=== PATIENT | male | born 1945 | race Caucasian/White ===

== ENCOUNTER → 2016-08-05 | Outpatient (CLI) | payer MEDICARE | END | disposition home or self-care (01) | LOC: PCVCCLINIC 15:42 | PROVIDERS: ATTEND Internal Medicine Cardiovascular Disease | DX: I25.10 Atherosclerotic heart disease of native coronary artery without angina pectoris (principal); E78.00 Pure hypercholesterolemia, unspecified; E11.9 Type 2 diabetes mellitus without complications; I25.2 Old myocardial infarction; I45.10 Unspecified right bundle-branch block; I65.29 Occlusion and stenosis of unspecified carotid artery; J44.9 Chronic obstructive pulmonary disease, unspecified; I11.0 Hypertensive heart disease with heart failure; I50.22 Chronic systolic (congestive) heart failure; E03.9 Hypothyroidism, unspecified; Z95.0 Presence of cardiac pacemaker; Z95.1 Presence of aortocoronary bypass graft; Z95.2 Presence of prosthetic heart valve; Z85.72 Personal history of non-Hodgkin lymphomas; Z88.5 Allergy status to narcotic agent; Z79.82 Long term (current) use of aspirin; Z79.899 Other long term (current) drug therapy; Z88.8 Allergy status to other drugs, medicaments and biological substances; Z85.828 Personal history of other malignant neoplasm of skin; Z88.6 Allergy status to analgesic agent; Z87.09 Personal history of other diseases of the respiratory system; Z88.0 Allergy status to penicillin | CPT/HCPCS: 80061; 93005; G0463 ==

== ENCOUNTER → 2017-02-04 | Outpatient (CLI) | payer MEDICARE ==
--- NOTE | 2017-02-04 17:14 | PCVCIMAG ---
APPROVED REPORT Study performed: 02/04/2017 14:02:18 EXAM: Comprehensive 2D, Doppler, and color-flow Echocardiogram Patient Location: Echo lab Status: routine BSA: 2.21 HR: 88 bpmBP: 130/78 mmHg Rhythm: Pacemaker Other Information Study Quality: Good Indications Diabetes Pacemaker Aortic Valve Replacement. CABG, 2D Dimensions IVSd: 18.31 (7-11mm)LVOT Diam: 23.01 (18-24mm) LVDd: 45.53 mm PWd: 16.26 (7-11mm)Ascending Ao: 35.31 (22-36mm) LVDs: 37.46 (25-40mm) Left Atrium: 49.81 (27-40mm) Aortic Root: 29.14 mm LV Single Plane 4CH: 48.98 % Jules's LVEF: 36.99 % Volumes Left Atrial Volume (Systole) Single Plane 4CH: 68.70 mLSingle Plane 2CH: 114.18 mL LA ESV Index: 44.00 mL/m2 Aortic Valve AoV Peak Federico.: 3.52 m/s AO Peak Gr.: 49.45 mmHgLVOT Max P.99 mmHg AO Mean Gr.: 30.75 mmHgLVOT Mean P.98 mmHg AO V2 Mean: 2.72 m/sLVOT Max V: 1.00 m/s AO V2 VTI: 82.09 cm CHELSI (VTI): 1.08 [id number] V1 VTI: 21.41 cm CHELSI Vmax: 1.18 cm2 Mitral Valve E/A Ratio: 0.9 MV Decel. Time: 209.88 ms MV E Max Federico.: 1.07 m/s MV A Federico.: 1.16 m/s MV PHT: 60.87 ms IVRT: 103.81 ms TDI E/Lateral E': 15.29E/Medial E': 13.38 Medial E' Federico.: 0.08 m/s Lateral E' Federico.: 0.07 m/s Pulmonary Valve PV Peak Gr.: 2.97 mmHg Pulmonary Vein P Vein S: 0.57 m/sP Vein A: 0.31 m/s P Vein D: 0.67 m/sP Vein A Dur.: 83.0 msec P Vein S/D Ratio: 0.85 Tricuspid Valve TR Peak Federico.: 3.22 m/s TR Peak Gr.: 41.49 mmHg Left Ventricle The left ventricle is normal size. There is normal LV segmental wall motion. There is normal left ventricular wall thickness. Left ventricular systolic function is normal. The left ventricular ejection fraction is within the normal range. LVEF is 50%. The left ventricular diastolic function is normal. Right Ventricle The right ventricle is normal size. The right ventricular systolic function is normal. Pacemaker lead is present in the right ventricle. Atria Left atrium is moderately dilated. Pacemaker lead is present in the right atrium. Aortic Valve #26 Bioprosthesis Aortic Valve No aortic regurgitation is present. Peak Gradient of 50mhg Mean gradient of 31mmhg. Aortic Valve area of 1.1cm2 Mitral Valve Moderate mitral annular calcification. Trace mitral regurgitation. No evidence of mitral valve stenosis. Tricuspid Valve The tricuspid valve is normal in structure. Trace tricuspid regurgitation. Pulmonary artery pressure is 49mmhg. Pulmonic Valve The pulmonary valve is normal in structure. There is no pulmonic valvular regurgitation. Great Vessels The aortic root is normal in size. IVC is normal in size and collapses with >50% inspiration Pericardium There is no pericardial effusion. <Conclusion> The left ventricle is normal size. Left ventricular systolic function is normal. The left ventricular ejection fraction is within the normal range. LVEF is 50%. The left ventricular diastolic function is normal. The right ventricle is normal size. Left atrium is moderately dilated. Pacemaker lead is present in the right atrium. #26 Bioprosthesis Aortic Valve Peak Gradient of 50mhg Mean gradient of 31mmhg. Aortic Valve area of 1.1cm2 Moderate mitral annular calcification. Trace mitral regurgitation. Trace tricuspid regurgitation. Pulmonary artery pressure is 49mmhg. There is no pulmonic valvular regurgitation. There is no pericardial effusion.
== END | disposition home or self-care (01) ==
LOC: PCVCIMAG 13:52
PROVIDERS: ATTEND Internal Medicine Cardiovascular Disease
DX: I25.10 Atherosclerotic heart disease of native coronary artery without angina pectoris (principal); I10 Essential (primary) hypertension; I65.29 Occlusion and stenosis of unspecified carotid artery; E11.9 Type 2 diabetes mellitus without complications; Z95.2 Presence of prosthetic heart valve; Z95.1 Presence of aortocoronary bypass graft; Z79.899 Other long term (current) drug therapy; Z79.82 Long term (current) use of aspirin
CPT/HCPCS: 80061; 93005; 93306; G0463

== ENCOUNTER → 2017-04-24 | Outpatient (CLI) | payer MEDICARE ==
[~2017-04-24] MED LIST: REGADENOSON 0.4 MG/5 ML DISP.SYRIN. IV
== END | disposition home or self-care (01) ==
LOC: PCVCIMAG 12:23
DX: I25.10 Atherosclerotic heart disease of native coronary artery without angina pectoris (principal); E78.5 Hyperlipidemia, unspecified; I10 Essential (primary) hypertension; E11.9 Type 2 diabetes mellitus without complications; I25.2 Old myocardial infarction; Z95.1 Presence of aortocoronary bypass graft
CPT/HCPCS: 78452; 93017; A9500; J2785

== ENCOUNTER → 2017-08-25 | Outpatient (CLI) | payer MEDICARE | END | disposition home or self-care (01) | LOC: PCVCIMAG 11:35 | DX: I25.10 Atherosclerotic heart disease of native coronary artery without angina pectoris (principal); I10 Essential (primary) hypertension; E78.5 Hyperlipidemia, unspecified; I65.29 Occlusion and stenosis of unspecified carotid artery; R07.89 Other chest pain; R06.02 Shortness of breath; I42.9 Cardiomyopathy, unspecified; T82.9XXA Unspecified complication of cardiac and vascular prosthetic device, implant and graft, initial encounter; R94.31 Abnormal electrocardiogram [ECG] [EKG]; Z95.1 Presence of aortocoronary bypass graft; Z79.899 Other long term (current) drug therapy; Z79.82 Long term (current) use of aspirin; Z88.8 Allergy status to other drugs, medicaments and biological substances | CPT/HCPCS: 80061; 93005; 93306; G0463 ==

== ENCOUNTER → 2017-12-01 | Outpatient (CLI) | payer MEDICARE | END | disposition home or self-care (01) | LOC: PCVCCLINIC 13:32 | PROVIDERS: ATTEND Internal Medicine Cardiovascular Disease | DX: I25.10 Atherosclerotic heart disease of native coronary artery without angina pectoris (principal); I11.0 Hypertensive heart disease with heart failure; I50.22 Chronic systolic (congestive) heart failure; E78.00 Pure hypercholesterolemia, unspecified; I77.9 Disorder of arteries and arterioles, unspecified; I35.0 Nonrheumatic aortic (valve) stenosis; E11.9 Type 2 diabetes mellitus without complications; Z95.2 Presence of prosthetic heart valve; Z95.0 Presence of cardiac pacemaker; Z95.1 Presence of aortocoronary bypass graft; Z86.711 Personal history of pulmonary embolism; Z79.4 Long term (current) use of insulin; Z79.82 Long term (current) use of aspirin | CPT/HCPCS: 93281; G0463 ==

== ENCOUNTER → 2018-04-15 | Outpatient (CLI) | payer MEDICARE ==
--- NOTE | 2018-04-15 16:27 | PCVCIMAG ---
APPROVED REPORT Study performed: 04/15/2018 14:51:07 EXAM: Comprehensive 2D, Doppler, and color-flow Echocardiogram Patient Location: Echo lab Room #: 3Status: routine BSA: 2.20 HR: 89 bpmBP: 142/74 mmHg Rhythm: Pacemaker Other Information Study Quality: Adequate Risk Factors: Cardiac Risk Factors: DM, HTN, Radiation Indications Aortic Valve Disease Congestive Heart Failure Diabetes Hypertension/HDD Hx AVR #26 Yoder bovine 2D Dimensions IVSd: 11.42 (7-11mm)LVOT Diam: 25.30 (18-24mm) LVDd: 55.31 mm PWd: 14.82 (7-11mm)Ascending Ao: 36.64 (22-36mm) LVDs: 42.44 (25-40mm) Left Atrium: 44.32 (27-40mm) Aortic Root: 31.08 mm LV Single Plane 4CH: 40.80 % LV Single Plane 2CH: 41.40 % Biplane EF: 40.7 % Volumes Left Atrial Volume (Systole) Single Plane 4CH: 72.41 mLSingle Plane 2CH: 66.04 mL Biplane LA Volume: 81.00 mLLA ESV Index: 37.00 mL/m2 Aortic Valve AoV Peak Federico.: 3.42 m/s AO Peak Gr.: 46.97 mmHgLVOT Max P.35 mmHg AO Mean Gr.: 29.38 mmHgLVOT Mean P.63 mmHg AO V2 Mean: 2.58 m/sLVOT Max V: 1.04 m/s AO V2 VTI: 71.29 cm CHELSI (VTI): 1.47 [id number] V1 VTI: 20.89 cm CHELSI Vmax: 1.53 cm2 Mitral Valve MV Peak Gr.: 8.51 mmHg MV Mean Gr.: 4.41 mmHgE/A Ratio: 0.6 MV Decel. Time: 45.46 ms MV E Max Federico.: 0.93 m/s MV A Federico.: 1.46 m/s MV Max Federico.: 1.46 m/s MV VTI: 272.66 mm MVA VTI: 384.84 mm2 MV PHT: 13.18 ms IVRT: 71.51 ms Pulmonary Valve PV Peak Federico.: 1.03 m/sPV Peak Gr.: 4.27 mmHg Pulmonary Vein P Vein S: 0.49 m/sP Vein A: 0.28 m/s P Vein D: 0.23 m/sP Vein A Dur.: 93.4 msec P Vein S/D Ratio: 2.13 Tricuspid Valve TR Peak Federico.: 3.48 m/s TR Peak Gr.: 48.49 mmHg TV Vmax: 1.02 m/sPA Pressure: 56.00 mmHg Left Ventricle The left ventricle is normal size. There is normal LV segmental wall motion. There is normal left ventricular wall thickness. Left ventricular systolic function is normal. The left ventricular ejection fraction is within the normal range. 50-55% The left ventricular diastolic function is normal. Right Ventricle The right ventricle is normal size. The right ventricular systolic function is normal. Atria The left atrium size is normal. The right atrium size is normal. Aortic Valve A #26 Yoder bovine bioprosthetic valve is in the aortic position. Aortic valve leaflets are moderately sclerotic with decreased opening. Bioprosthetic aortic valve is present. No aortic regurgitation is present. Mild to moderate aortic stenosis. Highest mean aortic valve gradient is 29_mmHg. Peak aortic valve gradient is 47_mmHg. Calculated CHELSI by the continuity equation is 1.5 cm2. Mitral Valve Mitral valve leaflets are moderately thickened with mildly reduced excursion. Moderate mitral annular calcification. Trace mitral regurgitation. The mean gradient is 4.4mmHg The valve area is 3.8 cm2 Tricuspid Valve The tricuspid valve is normal in structure. Moderate to severe tricuspid regurgitation with a PA pressure of 56 mmHg Moderate pulmonary hypertension.. Pulmonic Valve The pulmonary valve is normal in structure. There is no pulmonic valvular regurgitation. Great Vessels The aortic root is normal in size. Aortic arch is not well visualized. The ascending aorta is normal in size. IVC is normal in size and collapses >50% with inspiration. Pericardium There is no pericardial effusion. There is no pleural effusion. <Conclusion> The left ventricle is normal size. 50-55% The right ventricle is normal size. The left atrium size is normal. A #26 Yoder bovine bioprosthetic valve is in the aortic position. Aortic valve leaflets are moderately sclerotic with decreased opening. Mild to moderate aortic stenosis. Highest mean aortic valve gradient is 29_mmHg. Peak aortic valve gradient is 47_mmHg. Calculated CHELSI by the continuity equation is 1.5 cm2. Mitral valve leaflets are moderately thickened with mildly reduced excursion. Moderate mitral annular calcification. Trace mitral regurgitation. Moderate to severe tricuspid regurgitation with a PA pressure of 56 mmHg Moderate pulmonary hypertension.. The aortic root is normal in size. There is no pericardial effusion.
== END | disposition home or self-care (01) ==
LOC: PCVCIMAG 14:42
PROVIDERS: ATTEND Internal Medicine Cardiovascular Disease
DX: I07.1 Rheumatic tricuspid insufficiency (principal); I35.0 Nonrheumatic aortic (valve) stenosis; I27.20 Pulmonary hypertension, unspecified; I25.10 Atherosclerotic heart disease of native coronary artery without angina pectoris; D64.9 Anemia, unspecified; I11.0 Hypertensive heart disease with heart failure; I50.22 Chronic systolic (congestive) heart failure; R53.83 Other fatigue; E78.00 Pure hypercholesterolemia, unspecified; I25.5 Ischemic cardiomyopathy; I25.2 Old myocardial infarction; I45.10 Unspecified right bundle-branch block; E03.9 Hypothyroidism, unspecified; R55 Syncope and collapse; Z95.0 Presence of cardiac pacemaker; Z95.2 Presence of prosthetic heart valve; Z79.82 Long term (current) use of aspirin
CPT/HCPCS: 36415; 80061; 93005; 93306; G0463

== ENCOUNTER → 2018-06-22 | Outpatient (CLI) | payer MEDICARE | END | disposition home or self-care (01) | LOC: PCVCCLINIC 14:00 | PROVIDERS: ATTEND Internal Medicine Cardiovascular Disease | DX: Z48.812 Encounter for surgical aftercare following surgery on the circulatory system (principal); I11.0 Hypertensive heart disease with heart failure; I50.22 Chronic systolic (congestive) heart failure; Z95.0 Presence of cardiac pacemaker | CPT/HCPCS: 93281 ==